=== PATIENT | female | born 1995 | race Caucasian/White ===

== ENCOUNTER 2019-07-31 12:06 | Inpatient (IN) | payer OTHER, SELFPAY ==
[2019-07-31] VITALS (10 sets, daily range): BP systolic 101–126; BP diastolic 55–87; PULSE 65–100; RESP 14–20; TEMP 36.3–36.4; O2SAT 97–100; BMI 22.0
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
[2019-07-31] MEDS: SODIUM CHLORIDE 0.9% IV 1,000 ML 999 ML IV CONT (12:58)
[2019-07-31 13:05] LABS: Basophils Percent Auto 0.5 % (0.2-1.2); Eosinophils Percent Auto 0.5 % (0-4.4); Immature Granulocyte Absolute 0.01 K/mm3 (0.00-0.031); Immature Granulocyte Percent A 0.2 % (0-0.5); Lymphocytes Percent Auto 63.5 % (18.3-44.2); Mean Corpuscular HGB Conc 34.1 g/dl (32-36); Mean Corpuscular Hemoglobin 34.1 pg (26-34); Mean Platelet Volume 8.8 fl (7.4-10.4); Monocytes Absolute Auto 0.3 K/mm3 (0.1-0.6); Monocytes Percent Auto 6.8 % (2.6-8.5); Neutrophils Absolute Auto 1.3 K/mm3 (1.3-6.7); Neutrophils Percent Auto 28.5 % (45.5-73.1); Platelet Count Result 277 k/mm3 (150-375); Red Cell Distribution Width 12.8 % (11.5-14.5); White Blood Count 4.4 K/mm3 (4.5-10.0)
[2019-07-31 13:08] LABS: Alveolar/Arterial O2 Gradient 7.9 mmHg; Base Excess ABG -0.6 mEq/l (+/-2.0); Device ROOM AIR; Fractional Inspired Oxygen 21 %; HCO3 ABG 24.4 mEq/l (22.0-26.0); Modified Allen's Test Pass; Oxygen Content ABG 18.5 %vol (16.0-22.0); Oxygen Saturation ABG 96.9 % (95.0-100.0); Oxyhemoglobin 95.2 % THb (90.0-100.0); PCO2 ABG 41.7 mmHg (35.0-45.0); PO2 ABG 91.9 mmHg (80.0-100.0); PO2 FiO2 Ratio Arterial Blood 4.38 %; Site Drawn RIGHT RADIAL; Total Hemoglobin 13.8 g/dL (12.0-18.0); pH ABG 7.386 (7.350-7.450)
[2019-07-31 13:16] LABS: INR 0.9; Partial Thromboplastin Time 26.4 SECONDS (22.3-36.8); Prothrombin Time 11.8 Seconds (11.1-14.7)
[2019-07-31 13:18] LABS: Alanine Aminotransferase 26 U/L (4-35); Alkaline Phosphatase 125 U/L (38-126); Aspartate Amino Transferase 42 U/L (14-36); Bilirubin,Total 0.4 mg/dL (0.2-1.3); Blood Urea Nitrogen 4 mg/dL (7-17); Calcium 9.2 mg/dL (8.4-10.2); Carbon Dioxide 24 mmol/L (22-30); Chloride 100 mmol/L (98-107); Estimated Glomerular Filt Rate > 60; Glucose 81 mg/dL (65-105); Potassium 3.3 mmol/L (3.4-5.0); Sodium 143 mmol/L (137-145)
[2019-07-31 13:56] LABS: Ethanol 217 mg/dL (<10)
[2019-07-31 14:24] LABS: Add Urine Microscopic? YES; Appearance Urine Cloudy (Clear); Bacteria Urine Trace /hpf; Bilirubin Urine Negative (Negative); Blood Urine 2+ (Negative); Color Urine Yellow (Yellow); Glucose Urine UA Negative (Negative); Ketones Urine Negative (Negative); Leukocyte Esterase Ur Negative LEU/UL (Negative); Mucus Urine Heavy /lpf; Nitrate Urine Positive (Negative); Protein Urine 1+ mg/dL (Negative); Specific Grav Ur 1.021 (1.001-1.035); Squamous Epithelial Cell Urine Few /hpf (Few); Urobilinogen Urine Negative mg/dL (<2.0)
[2019-07-31 14:37] LABS: Amphetamine Screen Urine Negative (Negative); Barbiturate Screen Urine Positive (Negative); Benzodiazepines Screen Urine Negative (Negative); Cannabinoid Screen Urine Negative (Negative); Cocaine Screen Urine Negative (Negative); Methadone Screen Urine Negative (Negative); Opiate Screen Urine Negative (Negative); Phencyclidine Screen Urine Negative (Negative)
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
[2019-07-31 15:19] LABS: Acetaminophen 52 ug/mL (10-30); Salicylate < 1.0 mg/dL (2-20)
--- NOTE | 2019-07-31 17:30 | ADMGEN ---
This patient, Costa Robledo, was admitted to Intensive Care Unit-4. Patient/family oriented to hospital policies and general routines including ID bracelet, bed and alarms, visiting hours, pain management, procedures, bathroom and other care routines, personal items, smoking policy, room service/diet, and visiting hours. Valuables list has been completed. Information on how to activate the Rapid Response Team has been discussed. Patient/Family are encouraged to report perceived risks to care and to ask questions if they do not understand what they are told or what they should do.
[2019-07-31] MEDS: ONDANSETRON INJ 4 MG/2 ML VIAL IV PUSH (17:49)
[2019-07-31] MEDS: LACTATED RINGERS 1,000 ML 125 ML IV CONT (17:56)
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
[2019-07-31 20:49] LABS: Acetaminophen 11 ug/mL (10-30); Salicylate < 1.0 mg/dL (2-20)
[2019-07-31 20:50] LABS: Alanine Aminotransferase 23 U/L (4-35); Albumin Level 4.6 g/dL (3.5-5.1); Alkaline Phosphatase 107 U/L (38-126); Aspartate Amino Transferase 37 U/L (14-36); Bilirubin,Total 0.4 mg/dL (0.2-1.3); Blood Urea Nitrogen 3 mg/dL (7-17); Carbon Dioxide 25 mmol/L (22-30); Chloride 100 mmol/L (98-107); Estimated CRCL calculation 136 ml/min; Estimated Glomerular Filt Rate > 60; Glucose 80 mg/dL (65-105); Magnesium 1.5 mg/dL (1.6-2.3); Phosphorus 3.7 mg/dL (2.5-4.5); Potassium 3.7 mmol/L (3.4-5.0); Sodium 137 mmol/L (137-145)
[2019-08-01] VITALS (7 sets, daily range): BP systolic 101–109; BP diastolic 59–89; PULSE 59–85; RESP 15–22; TEMP 36.8; O2SAT 97–100
[2019-08-01 04:38] LABS: Mean Corpuscular HGB Conc 33.3 g/dl (32-36); Mean Corpuscular Hemoglobin 33.6 pg (26-34); Mean Corpuscular Volume 100.8 fl (80-100); Mean Platelet Volume 8.9 fl (7.4-10.4); Platelet Count Result 217 k/mm3 (150-375); Red Blood Count 3.57 M/mm3 (4.2-5.4); Red Cell Distribution Width 12.7 % (11.5-14.5); White Blood Count 5.4 K/mm3 (4.5-10.0)
[2019-08-01 04:51] LABS: Alanine Aminotransferase 22 U/L (4-35); Albumin Level 4.3 g/dL (3.5-5.1); Alkaline Phosphatase 99 U/L (38-126); Aspartate Amino Transferase 34 U/L (14-36); Bilirubin,Total 0.8 mg/dL (0.2-1.3); Blood Urea Nitrogen 6 mg/dL (7-17); Calcium 9.2 mg/dL (8.4-10.2); Carbon Dioxide 29 mmol/L (22-30); Chloride 98 mmol/L (98-107); Estimated CRCL calculation 105 ml/min; Estimated Glomerular Filt Rate > 60; Glucose 92 mg/dL (65-105); Magnesium 1.7 mg/dL (1.6-2.3); Potassium 3.4 mmol/L (3.4-5.0); Sodium 135 mmol/L (137-145)
[2019-08-01 04:52] LABS: Acetaminophen < 10 ug/mL (10-30)
[2019-08-01] MEDS: ONDANSETRON INJ 4 MG/2 ML VIAL IV PUSH ×2 (06:25→13:42)
--- NOTE | 2019-08-01 08:37 | WPDCNINT ---
Assessment and Plan Assessment and plan (1) Drug overdose: Qualifiers: Encounter type: subsequent encounter Injury intent: undetermined intent Qualified Code(s): T50.904D - Poisoning by unspecified drugs, medicaments and biological substances, undetermined, subsequent encounter Code(s): T50.901A - Poisoning by unspecified drugs, medicaments and biological substances, accidental (unintentional), initial encounter Status: Acute Assessment and Plan: She is unsure as to what medication she took, but 1 acetaminophen/butalbital/caffeine was found near her. Initial Tylenol level was elevated, LFTs are stable . Tylenol level is <10 this am . she is noted to have P wave inversions on tele monitoring . Will check 12 lead (2) Depression with suicidal ideation: Code(s): F32.9 - Major depressive disorder, single episode, unspecified; R45.851 - Suicidal ideations Status: Acute Assessment and Plan: She has a long standing history of depression including previous suicide attempt. Psy consult Suicide precautions initiated. (3) ETOH abuse: Code(s): F10.10 - Alcohol abuse, uncomplicated Status: Acute Assessment and Plan: Alcohol level was 217 on arrival on CIWA protocol. on thiamine and folic acid supplementation. no signs of withdrawl noted Additional Plan DVT prophylaxis - not indicated as ambulatory Traffic Chief Consult Note Consult date: 08/01/19 Time Seen: 09:40 HPI: Costa Robledo is a 23 year old female Who presented to the emergency room yesterday with reported suicidal attempt. History is obtained mainly from the medical chart as patient is not willing to give much information. As per patient she took a bunch of her mom's medications. She is not sure what medications they were. Patient also does not want her mom informed about this episode. patient does give history of having suicidal ideations but never had a plan. Yesterday she was drinking beer and felt suicidal and hence went ahead and took a bunch of pills from the bottle. As per patient the pills were initially quite a bit so she spit them out. Then she started taking 3pills at a time . However she was unsure as to how many pills she had taken. One of her friends called EMS to check on the patient after reading her social media post. Patient has had history of suicidal ideation and attempt in the past. She also has history of binge drinking alcohol. Her urine toxicology in the ER was positive for barbiturates. Her initial Tylenol level was 54. It is down to less than 10 this morning. it appears that patient might have taken her mom's migraine medication. Patient is awake and alert this morning without any distress. She had some episodes of nausea last night. She is noted to have stable vital signs with the heart rate of 56. She is however noted to have P-wave inversions on her EKG. A 12 lead EKG has been ordered. Patient is also noted to have a UTI per UA. urine culture is pending. Review of Systems Constitutional: Constitutional: Reports no additional constitutional complaints ENT: Reports system reviewed and no additional complaints, except as documented Cardiovascular: Cardiovascular: Reports no additional cardiovascular complaints Respiratory: Respiratory: Reports no additional respiratory complaints Gastrointestinal: Gastrointestinal: Reports nausea Genitourinary: Genitourinary: Reports no additional female genitourinary complaints Integumentary/Breasts: Skin/Breast: Reports system reviewed and no additional complaints, except as docu Neurologic: Reports system reviewed and no additional complaints, except as documented Psychiatric: Psychiatric: Reports no additional psychiatric complaints Endocrine: Endocrine: Reports no additional endocrine complaints Hematologic/Lymphatic: Hematologic/Lymphatic: Reports no additional hematologic/lymphatic complaint
--- NOTE | 2019-08-01 08:38 | ECG_ITS ---
Measurements Intervals [place] Rate: 53 P: 267 NE: 132 QRS: 64 QRSD: 101 T: 57 QT: 460 QTc: 433 Interpretive Statements ECTOPIC ATRIAL BRADYCARDIA INCOMPLETE RIGHT BUNDLE BRANCH BLOCK ABNORMAL ECG Electronically Signed On 08-01-2019 9:44:01 CABLE ENGINEER by Remy Gibbons D.O.
[2019-08-01] MEDS: LACTATED RINGERS 1,000 ML 100 ML IV CONT (09:45)
[2019-08-01] MEDS: THIAMINE HCL 100 MG TABLET PO (11:21)
[2019-08-01] MEDS: FOLIC ACID 1 MG TABLET PO (11:21)
--- NOTE | 2019-08-01 14:37 | PM.IMPN ---
Progress Note: A&P Assessment and Plan (1) Drug overdose: Qualifiers: Encounter type: subsequent encounter Injury intent: undetermined intent Qualified Code(s): T50.904D - Poisoning by unspecified drugs, medicaments and biological substances, undetermined, subsequent encounter Code(s): T50.901A - Poisoning by unspecified drugs, medicaments and biological substances, accidental (unintentional), initial encounter Status: Acute Assessment and Plan: She is unsure as to what medication she took, acetaminophen level was initially 52 but now non detectable some 6 hours later. Poison control was contacted . (2) Acute hypokalemia: Code(s): E87.6 - Hypokalemia Status: Acute Assessment and Plan: Potassium will be replaced and monitored., still 3.4 this a.m. so another additional oral supplement (3) Depression with suicidal ideation: Code(s): F32.9 - Major depressive disorder, single episode, unspecified; R45.851 - Suicidal ideations Status: Acute Assessment and Plan: She has a long standing history of depression including previous suicide attempt. Will consult crisis tomorrow morning for placement. Suicide precautions initiated. (4) ETOH abuse: Code(s): F10.10 - Alcohol abuse, uncomplicated Status: Acute Assessment and Plan: Alcohol level was 217 on arrival today. Will repeat level in a.m. prior to consulting crisis. Initiate CIWA protocol. Start thiamine and folic acid supplementation. mag replaced and recheck Phos am too elevated MCV probable from liver disease but will check b12 also Subjective Date/time seen: 08/01/19 14:37 Interval history: Date of visit 08/01/19 23-year-old depressed white female with previous history of suicide attempt and ETOH and drug abuse admitted to the hospital when she presented after having taken a handful of prescription drugs from the [facility] medicine cabinet. Thought to be at least partially acetaminophine barbiturate combo drugs for headache that her mother uses. This a.m. she is tired but easily arousable and has no specific complaints Exam Narrative: Exam Narrative: General: A well-developed, well-nourished female laying in bed in no acute distress. HEENT: Normocephalic, atraumatic. PERRL, EOMI. Sclerae anicteric. Neck: Supple. Respiratory: Lungs are clear to auscultation bilaterally. Cardiovascular: Regular rate and rhythm with S1-S2. Gastrointestinal: Abdomen is soft, nontender, and nondistended with positive bowel sounds. Skin: Warm and dry. No rash or lesions on limited exam. Extremities: No cyanosis, clubbing, or edema. Radial and pedal pulses intact. Neurological: Alert. Cranial nerves 2-12 are grossly intact. No gross focal deficits to casual conversation. Psychiatric: She is pleasant and cooperative. Slightly depressed mood. Objective Data Vital Signs Vital Signs: Vital Signs - 24 hr 07/31/19 14:56 07/31/19 16:01 07/31/19 17:00 Temperature Pulse Rate 89 100 85 Respiratory Rate 18 20 18 Blood Pressure 122/82 105/55 L 101/59 L Pulse Oximetry 100 100 98 07/31/19 17:15 07/31/19 18:00 07/31/19 20:00 Temperature Pulse Rate 95 95 65 Respiratory Rate 14 14 16 Blood Pressure 102/80 Pulse Oximetry 97 97 99 08/01/19 00:00 08/01/19 04:00 08/01/19 08:00 Temperature 36.8 C 36.8 C Pulse Rate 82 84 59 L Respiratory Rate 16 16 17 Blood Pressure 102/80 108/59 L 101/62 Pulse Oximetry 97 97 97 Intake/Output Intake/Output: Intake & Output 07/29/19 07/30/19 07/31/19 08/01/19 23:59 23:59 23:59 23:59 Intake Total 1240 1360 Balance 1240 1360 Meds/Results Medications: Active Medications Generic Name Dose Route Start Last Admin Trade Name Joshuaq PRN Reason Stop Dose Admin Folic Acid 1 mg 08/01/19 09:00 08/01/19 11:21 Folic Acid PO 1 mg DAILY KAMILLA Administration Lactated Ringer's 1,000 mls @ 100 mls/hr
[2019-08-02] VITALS: BP 104/68; PULSE 69; PULSE 80; RESP 18; TEMP 36.9; O2SAT 99
[2019-08-02 02:00] VITALS: PULSE 65
[2019-08-02 04:00] VITALS: BP 101/64; PULSE 65; RESP 16; O2SAT 99
[2019-08-02 04:44] LABS: Ethanol < 10 mg/dL (<10)
[2019-08-02 04:47] LABS: Albumin Level 3.9 g/dL (3.5-5.1); Blood Urea Nitrogen 6 mg/dL (7-17); Calcium 8.9 mg/dL (8.4-10.2); Carbon Dioxide 28 mmol/L (22-30); Chloride 99 mmol/L (98-107); Estimated CRCL calculation 105 ml/min; Estimated Glomerular Filt Rate > 60; Glucose 101 mg/dL (65-105); Phosphorus 3.5 mg/dL (2.5-4.5); Potassium 3.6 mmol/L (3.4-5.0); Sodium 134 mmol/L (137-145)
[2019-08-02 06:00] VITALS: PULSE 55
[2019-08-02 08:00] VITALS: BP 100/64; PULSE 55; PULSE 91; RESP 18; TEMP 36.8; O2SAT 98
[2019-08-02] MEDS: FOLIC ACID 1 MG TABLET PO (10:23)
[2019-08-02] MEDS: THIAMINE HCL 100 MG TABLET PO (10:23)
--- NOTE | 2019-08-02 10:36 | PC.NURSE ---
VOLUNTARY ADMIT FORM AND MEDICAL CLEARANCE FORM FAXED TO [facility] AT [facility] REQUESTED.
[2019-08-02] MEDS: CYANOCOBALAMIN INJ 1,000 MCG/ML VIAL 1000 MCG IM (11:50)
--- NOTE | 2019-08-02 18:20 | PM.DS ---
DS: Diagnosis Admitting Diagnosis Admitting Diagnosis: Poisoning by unspecified drugs, medicaments and biological substances, undetermined, subsequent encounter Discharge Diagnosis (1) Drug overdose: Qualifiers: Encounter type: subsequent encounter Injury intent: undetermined intent Qualified Code(s): T50.904D - Poisoning by unspecified drugs, medicaments and biological substances, undetermined, subsequent encounter Code(s): T50.901A - Poisoning by unspecified drugs, medicaments and biological substances, accidental (unintentional), initial encounter Status: Acute Assessment and Plan: She is unsure as to what medication she took, acetaminophen level was initially 52 but was non detectable some 6 hours later. Poison control was contacted and she continued to improve with no adverse effects . (2) Acute hypokalemia: Code(s): E87.6 - Hypokalemia Status: Acute Assessment and Plan: Potassium will be replaced and monitored., 3.6 the day of discharge (3) Depression with suicidal ideation: Code(s): F32.9 - Major depressive disorder, single episode, unspecified; R45.851 - Suicidal ideations Status: Acute Assessment and Plan: She has a long standing history of depression including previous suicide attempt. She was seen in consultation by crisis intervention and ranges made for her to be seen inpatient at [facility] psych unit. (4) ETOH abuse: Code(s): F10.10 - Alcohol abuse, uncomplicated Status: Acute Assessment and Plan: Alcohol level was 217 on arrival and repeat level nondetectable at the time of discharge. CIWA protocol. Was followed but no evidence of withdrawal Started thiamine and folic acid supplementation. mag replaced and recheck Phos was normal elevated MCV revealed a B12 level of only 247 and she received 2000 micro g IM before discharge of B12 (5) Urinary tract infection with pyuria: Code(s): N39.0 - Urinary tract infection, site not specified Status: Acute Assessment and Plan: She had a few white cells in her urine. Culture is still pending at the time of discharge she Re to see you to total of 3 days of Levaquin treatment to well here and 1 to be given on the DS: Summary Hospital Course Hospital Course: 23-year-old white female with long history of depression and previous attempts at suicide admitted after drinking heavily and ingestion of unknown quantity of on no medications. Urine drug screen was positive for barbiturates and initial acetaminophen levels 52 but quickly returned to nondetectable within 4 hours. She is monitored and stabilized and deemed medically clear after 24 hours. Seen by crisis intervention and discharge to [facility] psych unit for further treatment Time Spent with Patient Time attestation: Total time spent providing and/or coordinating discharge services: 35 minutes Exam Narrative: Exam Narrative: Condition on discharge: Blood pressure 100/64 pulse is 90 Lungs are clear CV regular rate rhythm Abdomen soft nontender no masses Extremities without edema Neuro alert pleasant cooperative no focal deficits DS: Data Data Completed and Pending Labs on day of discharge: Labs from last 24 hours 08/02/19 08/02/19 08/02/19 04:18 04:18 04:18 Sodium 134 L Potassium 3.6 Chloride 99 Carbon Dioxide 28 BUN 6 L Creatinine 0.80 Estim Creat Clear Calc 105 Estimated GFR > 60 Glucose 101 Calcium 8.9 Phosphorus 3.5 Albumin 3.9 Vitamin B12 244.0 TSH (Reflex) 1.060 Ethyl Alcohol < 10 Discharge Plan Discharge Attending physician on discharge: Dax Lees Discharging Clinician: Dax Lees Patient Disposition: Acute Care Hospital Discharge Instructions: Transfer to [facility] psych unit Patient Instructions: How to Stop Smoking (DC) Discharge Medications: Ne
== END 2019-08-02 12:49 | disposition short-term general hospital (02) | DRG 918 ==
LOC: ANHED 13:28 → ANHICU 16:31
PROVIDERS: Physician Assistant; Admitting Provider Internal Medicine; Emergency Provider Emergency Medicine; PCP Pediatrics; Visit Provider Internal Medicine
DX: T39.1X2A Poisoning by 4-Aminophenol derivatives, intentional self-harm, initial encounter (principal); R45.851 Suicidal ideations; N39.0 Urinary tract infection, site not specified; T42.3X2A Poisoning by barbiturates, intentional self-harm, initial encounter; F32.9 Major depressive disorder, single episode, unspecified; F10.10 Alcohol abuse, uncomplicated; E87.6 Hypokalemia; J45.909 Unspecified asthma, uncomplicated; Z87.891 Personal history of nicotine dependence
CPT/HCPCS: 36415; 36600; 80053; 80069; 80307; 81001; 81025; 82607; 82805; 83735; 84100; 84443; 85025; 85027; 85610; 85730; 87081; 93005; 96360; 99285; A9270; J2405; J3420; J7030; J7120

== ENCOUNTER 2020-04-24 00:36 | Emergency (ER) | payer OTHER, SELFPAY ==
[2020-04-24 00:41] VITALS: BP 107/84; PULSE 98; RESP 18; TEMP 37.1; O2SAT 97
--- NOTE | 2020-04-24 00:58 | ED.GENADULT ---
HPI - General Adult General Chief complaint: Animal Bite Stated complaint: dog bite Time Seen by Provider: 04/24/20 00:47 Source: patient Mode of arrival: ambulatory Limitations: no limitations History of Present Illness HPI narrative: Patient is a 24-year-old female who presents after being bit by a dog this a.m. Patient reports dog belongs to a friend but she is unsure if dog is up-to-date on shots. Patient is unsure of when her last tetanus shot. Patient has a puncture from dog below right nare. Patient also has puncture to lip. Denies other injuries. Denies pain at this time. complaint: Dog bite Related Data Allergies Allergy/AdvReac Type Severity Reaction Status Date / Time latex Allergy Unknown Rash Verified 04/24/20 01:09 Review of Systems Review of Systems: Narrative: CONSTITUTIONAL: Denies fever, chills, or sweats. EYES: Denies visual changes, redness, or discharge. ENT: Denies rhinorrhea, congestion, sore throat, or otalgia. CARDIOVASCULAR: Denies chest pain, palpitations, or edema. RESPIRATORY: Denies cough or dyspnea. GASTROINTESTINAL: Denies abdominal pain, nausea, vomiting, or diarrhea. GENITOURINARY: Denies dysuria or hematuria. SKIN: Puncture/laceration below nose, puncture lip MUSCULOSKELETAL: Denies back pain, joint pain, or myalgia. NEUROLOGIC: Denies headache, numbness, dizziness, or weakness. PSYCHIATRIC: Denies anxiety or depression. [facility] Past Medical History Medical History Asthma Depression ETOH abuse Previous known suicide attempt Seasonal allergies Surgical History Surgical History History of oral surgery No significant past surgical history Family History Family History Other Alcoholism Social History Social History Social History: Costa lives with her mom in her mother's friend in [place]. She has recently dropped out of college. She vapes. She drinks about 5 beers a day, but previously drank up to 12 a day. She has use cocaine and MDMA recreationally, but not very often anymore. She designates her mother as her surrogate decision maker. Smoking status: Current every day smoker Tobacco type: e-cigarettes/vaping Additional smoking assessment comments: vapes 1 or 2 times a day Alcohol intake: current Substance use: former Substance use type: crack/cocaine Gender identity (if verbalized by the patient): Female Spiritual care concerns: No Exam Narrative: Exam Narrative: GENERAL: Well-appearing, well-nourished, and in no acute distress. HEAD: Normocephalic, atraumatic. EYES: No redness or drainage. ENT: Mucous membranes pink and moist. CHEST: No respiratory distress. HEART: Regular rate and rhythm. EXTREMITIES: Normal range of motion. SKIN: 0.5 cm puncture/laceration below right nare NEURO: No focal deficits. Alert and oriented x3. Gait steady. PSYCH: Normal affect. No signs of depression or anxiety. Course Vital Signs Vital signs: Vital Signs Temperature 37.1 C 04/24/20 00:41 Pulse Rate 98 04/24/20 00:41 Respiratory Rate 18 04/24/20 00:41 Blood Pressure 107/84 04/24/20 00:41 Pulse Oximetry 97 04/24/20 00:41 Temperature 37.1 C 04/24/20 00:41 Pulse Rate 98 04/24/20 00:41 Respiratory Rate 18 04/24/20 00:41 Blood Pressure 107/84 04/24/20 00:41 Pulse Oximetry 97 04/24/20 00:41 Procedures Laceration Laceration 1: Date: 04/24/20 Time: 01:08 Site: face Size (cm): 0.5 Description: linear and contaminated Depth: simple, single layer Local Anesthetic: lidocaine 1% Amount of anesthesia used (mL): 0.4 Pre-repair: irrigated ====== Skin Level ====== Skin layer closed with: nylon Size (cm): 6-0 Technique: sim
[2020-04-24] MEDS: LIDOCAINE HCL 1% LOCAL INJ 20 ML VIAL (01:07)
[2020-04-24 01:29] VITALS: BP 120/74; PULSE 89; RESP 17; O2SAT 98
[2020-04-24] MEDS: AMOXICILLIN/CLAVULANATE K 875-125 MG TAB 1 TABLET PO (01:49)
[2020-04-24] MEDS: TETANUS,DIPHTHERIA,AC PERTUSSIS ADULT (0.5 ML) BOOSTRIX IM (01:49)
[2020-04-24 01:55] VITALS: BP 120/74; PULSE 94; RESP 18; O2SAT 98
== END 2020-04-24 01:55 | disposition home or self-care (01) ==
PROVIDERS: Emergency Provider Nurse Practitioner; PCP Pediatrics
DX: S01.85XA Open bite of other part of head, initial encounter (principal); Z23 Encounter for immunization; J45.909 Unspecified asthma, uncomplicated; F17.290 Nicotine dependence, other tobacco product, uncomplicated; W54.0XXA Bitten by dog, initial encounter
CPT/HCPCS: 12011; 90471; 90715; 99283; A9270